=== PATIENT | male | born 1950 | race Caucasian/White ===

== ENCOUNTER 2017-02-13 19:05 | Emergency (ER) | payer MEDICARE ==
[~2017-02-13] VITALS: Ht 172.7 cm; Wt 65.0 kg
[2017-02-13 22:22] VITALS: BP 129/61
== END 2017-02-13 22:23 | disposition home or self-care (01) ==
LOC: EDBD 19:05 → MERGE 19:05 → ED 22:21
DX: R41.82 Altered mental status, unspecified (principal)

== ENCOUNTER 2019-03-07 14:31 | Emergency (ER) | payer MEDICARE ==
[~2019-03-07] VITALS: Ht 180.3 cm; Wt 63.0 kg
[2019-03-07 14:34] VITALS: BP 134/61
[2019-03-07] MEDS ORDERED: ACETAMINOPHEN 500 MG TABLET ONE (14:47)
[2019-03-07] MEDS ORDERED: ACETAMINOPHEN 500 MG TABLET PO ONE (15:00)
--- NOTE | 2019-03-07 15:55 | NUR ---
Patient given discharge instructions and they have confirmed that they understand the instructions. Patient ambulatory with steady gait.
== END 2019-03-07 15:55 | disposition home or self-care (01) ==
LOC: EDBD 14:31 → ED 15:49
DX: G89.29 Other chronic pain (principal); M79.641 Pain in right hand; F17.200 Nicotine dependence, unspecified, uncomplicated; Z72.9 Problem related to lifestyle, unspecified
CPT/HCPCS: 99283